=== PATIENT | female | born 1970 | race African-American/Black ===

== ENCOUNTER 2022-07-04 13:07 | Inpatient (IN) | payer MEDICARE, MEDICAID ==
[~2022-07-04] VITALS: Ht 160 cm; Wt 63.5 kg
[2022-07-04] MEDS ORDERED: GABAPENTIN 300MG CAPSULE PO ONE (15:45)
[2022-07-04 15:57] LABS: BASOPHILS % 0.7 % (0.0-2.0); EOSINOPHILS % 0.4 % (0.0-5.0); HEMATOCRIT. 41.2 % (36.0-48.0); HEMOGLOBIN. 13.8 g/dL (12.0-16.0); LYMPHOCYTES % 37.2 % (20.0-50.0); MEAN CORPUSCULAR HEMOGLOBIN 29.7 pg (28.0-32.0); MEAN CORPUSCULAR VOLUME 88.5 fL (81.0-99.0); MEAN PLATELET VOLUME 8.9 fl (7.4-10.4); MONOCYTES % 4.8 % (2.0-8.0); NEUTROPHILS % 56.9 % (40.0-76.0); PLATELET 260 x1000/uL (130-400); RED BLOOD CELL COUNT 4.65 mill/uL (4.2-5.4); RED CELL DISTRIBUTION WIDTH 13.7 % (11.6-14.6)
[2022-07-04 16:06] LABS: CHLORIDE 102 mEq/L (98-107)
[2022-07-04 16:18] LABS: ETHANOL BLOOD < 10 mg/dL
[2022-07-04] MEDS ORDERED: ASPIRIN 325MG EC TABLET PO NR (17:30)
[2022-07-04] MEDS ORDERED: ENOXAPARIN 60MG/0.6ML SYR SUBCUT NR (19:30)
[2022-07-04] MEDS ORDERED: ONDANSETRON HCL 4MG/2ML INJ IV PRN (20:15)
[2022-07-04] MEDS ORDERED: IPRATROPIUM/ALBUTEROL 0.5-3(2.5)MG/3ML NEB HHN PRN (20:15)
[2022-07-04] MEDS ORDERED: CLONIDINE 0.1MG TABLET PO PRN (20:15)
[2022-07-04] MEDS ORDERED: ACETAMINOPHEN 325MG TABLET PO PRN (20:15)
[2022-07-04 20:45] LABS: PHOSPHORUS 3.8 mg/dL (2.5-4.9)
[2022-07-04 20:51] LABS: D-DIMER 0.32 mg/L FEU (<0.50); INR 1.1; PROTHROMBIN TIME 11.4 sec (9.6-11.0)
[2022-07-04] MEDS: ACETAMINOPHEN 325MG TABLET PO PRN (22:18)
[2022-07-05 02:09] VITALS: BP 144/72
[2022-07-05 02:14] VITALS: BP 144/72
[2022-07-05] MEDS ORDERED: DEXTROSE 50% WATER 50ML SYRINGE IV PRN ×2 (02:30→08:00)
[2022-07-05] MEDS ORDERED: BLOOD SUGAR DIAGNOSTIC STRIP TEST SCH (07:40)
[2022-07-05] MEDS: PANTOPRAZOLE 40MG DR TABLET PO SCH (07:40)
[2022-07-05 08:00] VITALS: BP 133/75
[2022-07-05] MEDS: AMLODIPINE 5MG TABLET PO SCH (08:00)
[2022-07-05] MEDS ORDERED: INSULIN LISPRO 100 UNITS/ML SUBCUT SCH (08:10)
[2022-07-05] MEDS: INSULIN LISPRO 100 UNITS/ML SUBCUT SCH ×4 (08:10→21:00)
[2022-07-05] MEDS ORDERED: MAGNESIUM 2 G PREMIX 50 ML IV NR (10:00)
[2022-07-05] MEDS: BLOOD SUGAR DIAGNOSTIC STRIP TEST SCH ×3 (11:56→21:00)
[2022-07-05] MEDS: GABAPENTIN 100MG CAPSULE PO SCH (17:12)
[2022-07-05] MEDS: ENOXAPARIN 40MG/0.4ML SYR SUBCUT SCH (21:00)
[2022-07-05] MEDS ORDERED: ALBUTEROL (0.083%) 2.5MG/3ML NEB HHN PRN (21:30)
[2022-07-05] MEDS ORDERED: IPRATROPIUM BROMIDE (0.02%) 0.5MG/2.5ML NEB HHN PRN (21:30)
[2022-07-06] VITALS: BP 151/79
[2022-07-06] MEDS: ACETAMINOPHEN 325MG TABLET PO PRN (02:57)
[2022-07-06] MEDS: NITROGLYCERIN 0.4MG TABLET SL SL PRN (03:18)
[2022-07-06 04:00] VITALS: BP 116/65
[2022-07-06] MEDS: GABAPENTIN 100MG CAPSULE PO SCH ×2 (05:51→18:48)
[2022-07-06 07:11] LABS: BASOPHILS % 0.4 % (0.0-2.0); EOSINOPHILS % 1.5 % (0.0-5.0); HEMATOCRIT. 33.4 % (36.0-48.0); HEMOGLOBIN. 11.5 g/dL (12.0-16.0); LYMPHOCYTES % 46.4 % (20.0-50.0); MEAN CORPUSCULAR HEMOGLOBIN 30.6 pg (28.0-32.0); MEAN CORPUSCULAR VOLUME 88.8 fL (81.0-99.0); MEAN PLATELET VOLUME 9.4 fl (7.4-10.4); MONOCYTES % 8.3 % (2.0-8.0); NEUTROPHILS % 43.4 % (40.0-76.0); PLATELET 205 x1000/uL (130-400); RED BLOOD CELL COUNT 3.76 mill/uL (4.2-5.4); RED CELL DISTRIBUTION WIDTH 13.5 % (11.6-14.6)
[2022-07-06 07:33] LABS: CHLORIDE 106 mEq/L (98-107)
[2022-07-06] MEDS: BLOOD SUGAR DIAGNOSTIC STRIP TEST SCH ×4 (07:55→21:08)
[2022-07-06 08:00] VITALS: BP 131/76
[2022-07-06] MEDS ORDERED: ACETAMINOPHEN 325MG TABLET PO ONE (08:30)
[2022-07-06] MEDS ORDERED: MAGNESIUM 2 G PREMIX 50 ML IV NR (09:30)
[2022-07-06] MEDS: AMLODIPINE 5MG TABLET PO SCH (11:30)
[2022-07-06] MEDS: PANTOPRAZOLE 40MG DR TABLET PO SCH (11:30)
[2022-07-06] MEDS: DOCUSATE SODIUM 100MG CAPSULE PO SCH (11:30)
[2022-07-06] MEDS ORDERED: METFORMIN HCL 500MG TABLET PO SCH (18:10)
[2022-07-06 20:00] VITALS: BP 120/72
[2022-07-06] MEDS: ENOXAPARIN 40MG/0.4ML SYR SUBCUT SCH ×2 (21:00→21:10)
[2022-07-06] MEDS ORDERED: INSULIN GLARGINE 100 UNITS/ML SUBCUT SCH (22:00)
[2022-07-07] VITALS: BP 103/56
[2022-07-07] MEDS: NITROGLYCERIN 0.4MG TABLET SL SL PRN (01:24)
[2022-07-07] MEDS: ACETAMINOPHEN 325MG TABLET PO PRN ×3 (01:25→10:27)
[2022-07-07 04:00] VITALS: BP 119/65
[2022-07-07] MEDS: GABAPENTIN 100MG CAPSULE PO SCH ×2 (06:00→06:05)
[2022-07-07] MEDS: BLOOD SUGAR DIAGNOSTIC STRIP TEST SCH ×4 (06:05→21:00)
[2022-07-07 08:00] VITALS: BP 139/73
[2022-07-07] MEDS: INSULIN LISPRO 100 UNITS/ML SUBCUT SCH ×4 (08:10→21:00)
[2022-07-07] MEDS: DOCUSATE SODIUM 100MG CAPSULE PO SCH (09:00)
[2022-07-07] MEDS: FAMOTIDINE 20MG TABLET PO SCH ×2 (10:27→21:00)
[2022-07-07] MEDS: AMLODIPINE 5MG TABLET PO SCH (10:27)
[2022-07-07] MEDS: METFORMIN HCL 500MG TABLET PO SCH (10:27)
[2022-07-07] MEDS ORDERED: MAGNESIUM 2 G PREMIX 50 ML IV NR (11:00)
[2022-07-07] MEDS: DIVALPROEX SODIUM 125MG SPRINKLE CAPSULE PO SCH ×2 (12:15→21:00)
[2022-07-07] MEDS: RISPERIDONE 1MG TABLET PO SCH ×2 (12:30→21:00)
[2022-07-07 20:00] VITALS: BP 141/60
[2022-07-07] MEDS: ENOXAPARIN 40MG/0.4ML SYR SUBCUT SCH (21:00)
[2022-07-08 04:00] VITALS: BP 119/67
[2022-07-08] MEDS: BLOOD SUGAR DIAGNOSTIC STRIP TEST SCH ×4 (06:28→21:00)
[2022-07-08 07:20] LABS: BASOPHILS % 0.4 % (0.0-2.0); EOSINOPHILS % 1.9 % (0.0-5.0); HEMATOCRIT. 34.4 % (36.0-48.0); HEMOGLOBIN. 11.6 g/dL (12.0-16.0); LYMPHOCYTES % 45.1 % (20.0-50.0); MEAN PLATELET VOLUME 9.4 fl (7.4-10.4); MONOCYTES % 7.5 % (2.0-8.0); NEUTROPHILS % 45.1 % (40.0-76.0); PLATELET 222 x1000/uL (130-400); RED BLOOD CELL COUNT 3.86 mill/uL (4.2-5.4); RED CELL DISTRIBUTION WIDTH 13.8 % (11.6-14.6)
[2022-07-08 08:00] VITALS: BP 137/87
[2022-07-08 08:09] LABS: CHLORIDE 105 mEq/L (98-107)
[2022-07-08] MEDS: INSULIN LISPRO 100 UNITS/ML SUBCUT SCH ×4 (08:10→21:00)
[2022-07-08] MEDS: METFORMIN HCL 500MG TABLET PO SCH ×2 (08:50→18:18)
[2022-07-08] MEDS: FAMOTIDINE 20MG TABLET PO SCH (08:51)
[2022-07-08] MEDS: DOCUSATE SODIUM 100MG CAPSULE PO SCH (08:51)
[2022-07-08] MEDS: AMLODIPINE 5MG TABLET PO SCH (08:51)
[2022-07-08] MEDS: DIVALPROEX SODIUM 125MG SPRINKLE CAPSULE PO SCH ×2 (08:51→22:18)
[2022-07-08] MEDS: RISPERIDONE 1MG TABLET PO SCH ×2 (08:52→22:18)
[2022-07-08] MEDS: AMOXICILLIN 500 MG CAPSULE PO SCH ×2 (15:53→18:18)
[2022-07-08] MEDS: AZITHROMYCIN 500 MG TABLET PO SCH ×2 (15:53→18:18)
[2022-07-08] MEDS: PANTOPRAZOLE 40MG DR TABLET PO SCH ×2 (15:53→22:18)
[2022-07-08 16:00] VITALS: BP 131/69
[2022-07-08] MEDS: GABAPENTIN 100MG CAPSULE PO SCH (18:18)
[2022-07-08 20:00] VITALS: BP 116/64
[2022-07-08] MEDS: NITROGLYCERIN 0.4MG TABLET SL SL PRN (22:20)
[2022-07-08] MEDS: ACETAMINOPHEN 325MG TABLET PO PRN (22:21)
[2022-07-08] MEDS: ENOXAPARIN 40MG/0.4ML SYR SUBCUT SCH ×2 (22:28→22:33)
[2022-07-09] VITALS: BP 120/60
[2022-07-09 04:00] VITALS: BP 131/78
[2022-07-09] MEDS: ACETAMINOPHEN 325MG TABLET PO PRN ×2 (04:21→21:37)
[2022-07-09] MEDS: GABAPENTIN 100MG CAPSULE PO SCH ×2 (05:31→18:28)
[2022-07-09] MEDS: BLOOD SUGAR DIAGNOSTIC STRIP TEST SCH ×4 (05:32→21:38)
[2022-07-09 08:00] VITALS: BP 139/74
[2022-07-09] MEDS: INSULIN LISPRO 100 UNITS/ML SUBCUT SCH ×4 (08:10→21:00)
[2022-07-09] MEDS: DOCUSATE SODIUM 100MG CAPSULE PO SCH (08:42)
[2022-07-09] MEDS: AMLODIPINE 5MG TABLET PO SCH (08:42)
[2022-07-09] MEDS: METFORMIN HCL 500MG TABLET PO SCH ×2 (08:42→18:29)
[2022-07-09] MEDS: PANTOPRAZOLE 40MG DR TABLET PO SCH ×2 (08:42→21:37)
[2022-07-09] MEDS: AZITHROMYCIN 500 MG TABLET PO SCH ×2 (08:42→18:28)
[2022-07-09] MEDS: RISPERIDONE 1MG TABLET PO SCH ×2 (08:42→21:38)
[2022-07-09] MEDS: AMOXICILLIN 500 MG CAPSULE PO SCH ×2 (08:42→18:28)
[2022-07-09] MEDS: DIVALPROEX SODIUM 125MG SPRINKLE CAPSULE PO SCH ×2 (08:43→21:37)
[2022-07-09 12:00] VITALS: BP 130/80
[2022-07-09 16:00] VITALS: BP 131/66
[2022-07-09 20:00] VITALS: BP 118/77
[2022-07-10] VITALS: BP 118/77
[2022-07-10 04:00] VITALS: BP 113/80
[2022-07-10] MEDS: GABAPENTIN 100MG CAPSULE PO SCH ×2 (06:00→17:54)
[2022-07-10] MEDS: BLOOD SUGAR DIAGNOSTIC STRIP TEST SCH ×4 (06:19→21:00)
[2022-07-10] MEDS: INSULIN LISPRO 100 UNITS/ML SUBCUT SCH ×4 (08:10→21:00)
[2022-07-10] MEDS: RISPERIDONE 1MG TABLET PO SCH ×2 (09:29→21:00)
[2022-07-10] MEDS: AZITHROMYCIN 500 MG TABLET PO SCH ×2 (09:29→17:00)
[2022-07-10] MEDS: METFORMIN HCL 500MG TABLET PO SCH ×2 (09:29→17:54)
[2022-07-10] MEDS: PANTOPRAZOLE 40MG DR TABLET PO SCH ×2 (09:29→21:00)
[2022-07-10] MEDS: AMOXICILLIN 500 MG CAPSULE PO SCH ×2 (09:29→17:00)
[2022-07-10] MEDS: DOCUSATE SODIUM 100MG CAPSULE PO SCH (09:29)
[2022-07-10] MEDS: DIVALPROEX SODIUM 125MG SPRINKLE CAPSULE PO SCH ×2 (09:30→21:00)
[2022-07-10] MEDS: AMLODIPINE 5MG TABLET PO SCH (09:30)
[2022-07-10 16:00] VITALS: BP 121/75
[2022-07-10] MEDS: ENOXAPARIN 40MG/0.4ML SYR SUBCUT SCH (21:00)
[2022-07-11] MEDS: GABAPENTIN 100MG CAPSULE PO SCH ×2 (06:00→18:00)
[2022-07-11] MEDS: BLOOD SUGAR DIAGNOSTIC STRIP TEST SCH ×4 (06:50→21:10)
[2022-07-11] MEDS: PANTOPRAZOLE 40MG DR TABLET PO SCH ×2 (07:40→21:00)
[2022-07-11] MEDS: AMLODIPINE 5MG TABLET PO SCH (08:00)
[2022-07-11] MEDS: INSULIN LISPRO 100 UNITS/ML SUBCUT SCH ×4 (08:10→21:00)
[2022-07-11] MEDS: METFORMIN HCL 500MG TABLET PO SCH ×2 (08:10→18:10)
[2022-07-11] MEDS: DIVALPROEX SODIUM 125MG SPRINKLE CAPSULE PO SCH ×2 (09:00→21:00)
[2022-07-11] MEDS: DOCUSATE SODIUM 100MG CAPSULE PO SCH (09:00)
[2022-07-11] MEDS: AMOXICILLIN 500 MG CAPSULE PO SCH ×2 (09:00→17:00)
[2022-07-11] MEDS: AZITHROMYCIN 500 MG TABLET PO SCH ×2 (09:00→17:00)
[2022-07-11] MEDS: RISPERIDONE 1MG TABLET PO SCH ×2 (09:00→21:00)
[2022-07-11] MEDS: ENOXAPARIN 40MG/0.4ML SYR SUBCUT SCH (21:00)
[2022-07-11] MEDS: ACETAMINOPHEN 325MG TABLET PO PRN (21:13)
[2022-07-12] MEDS: ACETAMINOPHEN 325MG TABLET PO PRN (05:38)
[2022-07-12] MEDS: GABAPENTIN 100MG CAPSULE PO SCH ×2 (05:43→18:00)
[2022-07-12] MEDS: BLOOD SUGAR DIAGNOSTIC STRIP TEST SCH ×4 (05:43→21:00)
[2022-07-12] MEDS: PANTOPRAZOLE 40MG DR TABLET PO SCH ×2 (07:40→21:00)
[2022-07-12] MEDS: AMLODIPINE 5MG TABLET PO SCH (08:00)
[2022-07-12] MEDS: INSULIN LISPRO 100 UNITS/ML SUBCUT SCH ×4 (08:10→21:00)
[2022-07-12] MEDS: METFORMIN HCL 500MG TABLET PO SCH ×2 (08:10→17:50)
[2022-07-12] MEDS: AZITHROMYCIN 500 MG TABLET PO SCH ×2 (09:00→17:00)
[2022-07-12] MEDS: DIVALPROEX SODIUM 125MG SPRINKLE CAPSULE PO SCH ×2 (09:00→21:00)
[2022-07-12] MEDS: DOCUSATE SODIUM 100MG CAPSULE PO SCH (09:00)
[2022-07-12] MEDS: RISPERIDONE 1MG TABLET PO SCH ×2 (09:00→21:00)
[2022-07-12] MEDS: AMOXICILLIN 500 MG CAPSULE PO SCH ×2 (09:00→17:00)
[2022-07-12] MEDS: FLUOXETINE HCL 10 MG CAPSULE PO SCH (11:30)
[2022-07-12] MEDS: ENOXAPARIN 40MG/0.4ML SYR SUBCUT SCH (21:00)
[2022-07-13] MEDS: GABAPENTIN 100MG CAPSULE PO SCH ×2 (06:00→18:00)
[2022-07-13] MEDS: PANTOPRAZOLE 40MG DR TABLET PO SCH ×2 (06:52→21:00)
[2022-07-13] MEDS: BLOOD SUGAR DIAGNOSTIC STRIP TEST SCH ×4 (06:52→21:00)
[2022-07-13] MEDS: METFORMIN HCL 500MG TABLET PO SCH ×2 (07:50→17:50)
[2022-07-13] MEDS: INSULIN LISPRO 100 UNITS/ML SUBCUT SCH ×4 (07:50→21:00)
[2022-07-13] MEDS: AMLODIPINE 5MG TABLET PO SCH (08:00)
[2022-07-13] MEDS: FLUOXETINE HCL 10 MG CAPSULE PO SCH (08:26)
[2022-07-13] MEDS: AMOXICILLIN 500 MG CAPSULE PO SCH ×2 (08:26→17:00)
[2022-07-13] MEDS: DIVALPROEX SODIUM 125MG SPRINKLE CAPSULE PO SCH ×2 (08:26→21:00)
[2022-07-13] MEDS: RISPERIDONE 1MG TABLET PO SCH ×2 (08:26→21:00)
[2022-07-13] MEDS: DOCUSATE SODIUM 100MG CAPSULE PO SCH (08:26)
[2022-07-13] MEDS: AZITHROMYCIN 500 MG TABLET PO SCH ×2 (08:27→17:00)
[2022-07-13] MEDS: ENOXAPARIN 40MG/0.4ML SYR SUBCUT SCH (21:00)
[2022-07-14] MEDS: GABAPENTIN 100MG CAPSULE PO SCH ×2 (06:00→17:00)
[2022-07-14] MEDS: BLOOD SUGAR DIAGNOSTIC STRIP TEST SCH ×4 (06:47→21:00)
[2022-07-14] MEDS: PANTOPRAZOLE 40MG DR TABLET PO SCH ×2 (06:47→21:00)
[2022-07-14] MEDS: METFORMIN HCL 500MG TABLET PO SCH ×2 (07:50→16:57)
[2022-07-14] MEDS: INSULIN LISPRO 100 UNITS/ML SUBCUT SCH ×4 (07:50→21:00)
[2022-07-14] MEDS: AMLODIPINE 5MG TABLET PO SCH (07:57)
[2022-07-14] MEDS: FLUOXETINE HCL 10 MG CAPSULE PO SCH (08:01)
[2022-07-14] MEDS: AMOXICILLIN 500 MG CAPSULE PO SCH ×2 (08:01→16:28)
[2022-07-14] MEDS: AZITHROMYCIN 500 MG TABLET PO SCH ×2 (08:01→16:28)
[2022-07-14] MEDS: DOCUSATE SODIUM 100MG CAPSULE PO SCH (08:01)
[2022-07-14] MEDS: RISPERIDONE 1MG TABLET PO SCH ×2 (08:01→21:00)
[2022-07-14] MEDS: DIVALPROEX SODIUM 125MG SPRINKLE CAPSULE PO SCH ×2 (08:01→21:00)
[2022-07-14] MEDS: ENOXAPARIN 40MG/0.4ML SYR SUBCUT SCH (21:00)
[2022-07-15] MEDS ORDERED: CLARITHROMYCIN 500MG TABLET PO SCH (09:00)
[2022-07-15] MEDS ORDERED: AZITHROMYCIN 500 MG TABLET PO SCH (09:00)
[2022-07-15] MEDS ORDERED: AMOXICILLIN 500 MG CAPSULE PO SCH (09:00)
== END 2022-07-15 13:40 | DRG 391 ==
LOC: ER 13:53 → MICUSO 19:40 → EDBEDREQ 19:51 → 7WST 07-05 01:57 → 6EST 07-12 13:37
PROVIDERS: ADMIT Internal Medicine; ATTEND Internal Medicine
PROC: 4A00X4Z Measurement of Central Nervous Electrical Activity, External Approach (ICD-10-PCS; principal; 2022-07-07)
DX: K21.9 Gastro-esophageal reflux disease without esophagitis (principal); I50.33 Acute on chronic diastolic (congestive) heart failure; E11.40 Type 2 diabetes mellitus with diabetic neuropathy, unspecified; D72.819 Decreased white blood cell count, unspecified; G83.9 Paralytic syndrome, unspecified; E83.42 Hypomagnesemia; M48.02 Spinal stenosis, cervical region; Z20.822 Contact with and (suspected) exposure to COVID-19; B96.81 Helicobacter pylori [H. pylori] as the cause of diseases classified elsewhere; I11.0 Hypertensive heart disease with heart failure; F31.9 Bipolar disorder, unspecified; F10.10 Alcohol abuse, uncomplicated; F20.9 Schizophrenia, unspecified; Z91.199 Patient's noncompliance with other medical treatment and regimen due to unspecified reason; Z91.14 Patient's other noncompliance with medication regimen; Z79.84 Long term (current) use of oral hypoglycemic drugs; Y90.0 Blood alcohol level of less than 20 mg/100 ml
CPT/HCPCS: 36415; 70551; 71045; 72141; 73120; 80048; 80053; 80307; 80320; 80329; 82607; 82746; 82962; 83036; 83735; 83880; 84100; 84484; 85025; 85379; 86677; 87426; 93005; 93306; 93880; 93970; 95816; 97166; 97530; 97535; 99285; C1893; J1650; J1815; J3475; G0480